=== PATIENT | male | born 1970 | race Hispanic/Latino ===

== ENCOUNTER 2020-08-07 14:22 | Emergency (ER) | payer MEDICARE ==
[~2020-08-07] VITALS: Ht 180.3 cm; Wt 104.3 kg
[2020-08-07 16:20] VITALS: BP 122/71
== END 2020-08-07 16:26 | disposition home or self-care (01) ==
LOC: ER 14:50
DX: S00.83XA Contusion of other part of head, initial encounter (principal); S80.01XA Contusion of right knee, initial encounter; M25.521 Pain in right elbow; W01.0XXA Fall on same level from slipping, tripping and stumbling without subsequent striking against object, initial encounter; Y93.01 Activity, walking, marching and hiking; Y92.89 Other specified places as the place of occurrence of the external cause; I10 Essential (primary) hypertension; E11.9 Type 2 diabetes mellitus without complications; G20 Parkinson's disease
CPT/HCPCS: 70450; 99283

== ENCOUNTER 2021-04-06 17:23 | Emergency (ER) | payer MEDICARE ==
[~2021-04-06] VITALS: Ht 180.3 cm; Wt 104.3 kg
[2021-04-06] MEDS ORDERED: SODIUM CHLORIDE 0.9% 1000ML 1,000 ML IV STA (17:38)
[2021-04-06] MEDS ORDERED: SODIUM CHLORIDE 0.9% 1000ML 1,000 ML ONE (17:58)
[2021-04-06 19:20] LABS: CREATINE KINASE 96 IU/L (30-200)
[2021-04-06 19:58] VITALS: BP 112/74
== END 2021-04-06 19:58 | disposition home or self-care (01) ==
LOC: FSED 18:29
DX: E86.0 Dehydration (principal); S80.01XA Contusion of right knee, initial encounter; W18.30XA Fall on same level, unspecified, initial encounter; Y92.019 Unspecified place in single-family (private) house as the place of occurrence of the external cause; S09.90XA Unspecified injury of head, initial encounter; G20 Parkinson's disease
CPT/HCPCS: 36415; 70450; 71045; 73560; 80053; 82550; 82553; 84484; 85025; 99284; J7030